=== PATIENT | male | born 1955 | race Caucasian/White ===

== ENCOUNTER → 2023-10-17 12:21 | Outpatient (REF) | payer MEDICARE, SELFPAY | LOC: CLAB 12:21 | PROVIDERS: ATTENDING PHYSICIAN Specialist | DX: R97.20 Elevated prostate specific antigen [PSA] (principal) | CPT/HCPCS: 88305; 88344 ==

== ENCOUNTER 2023-10-17 18:20 | Emergency (ER) | payer MEDICARE, OTHER, SELFPAY ==
[2023-10-17 18:33] VITALS: BP 156/98
--- NOTE | 2023-10-17 19:55 | ED.GENMED ---
History of Present Illness
General
Chief Complaint: Male Genito-Urinary Symptoms
Source: patient
Time Seen by Provider: 10/17/23 19:54
Travel History
Have you had any contact with someone who has COVID-19?: No
Do you have any symptoms of coronavirus? Fever > 100 degrees, chills, cough, shortness of breath, sore throat, loss of taste or smell, muscle aches, or headache?: No
History of Present Illness
History of Present Illness:
68-year-old male presenting the emergency department for evaluation after being unable to void since 11 AM after he had prostate biopsy earlier today with Dr. Tucker. Patient states he had similar episode about 4 years ago that required Larson
catheter. Other than some lower abdominal pressure and an urge to urinate patient is without any other concerns including fevers, chills, rigors, nausea, vomiting or any other concerns. He is taking prophylactic antibiotic prior to his surgery and
has a few more doses of this.
Past History
Past History
ED Past Medical History: Other (Prostate issues)
ED Past Surgical History: Urological
Social History
Tobacco: Non-smoker
Alcohol: None
Drug: None
Personal:
Living: with family
Employment: Employed
Family History
Family History: Other (Noncontributory)
Review of Systems
Review of Systems
All Other Systems: ROS reviewed and negative except as documented in HPI and ROS
Phy Exam
Physical Exam
Physical Exam:
GENERAL: Alert , in no apparent distress
EYE: conjunctiva clear
Head: Normocephalic atraumatic
NECK: Supple,
ENT: mmm.
LUNGS: no acute respiratory distress
ABDOMEN: 450 mL-bladder scan, suprapubic fullness
NEUROLOGICAL: Alert and oriented
SKIN: Warm and dry, skin intact.
MUSCULOSKELETAL: well perfused.
PSYCH: Normal and appropriate interaction.
Scores
Heart Failure Risk
Heart Failure Risk Score: Not Applicable
Heart Score for Chest Pain Patients
STEMI patient?: Not applicable
Withdrawal Assessment of Alcohol
Withdrawal Assessment Completed?: Not applicable
Course
Vital Signs
Initial and Last Documented VS:
Initial Vital Signs
Temp Pulse Resp BP Pulse Ox
98.0 F 85 20 156/98 98
10/17/23 18:33 10/17/23 18:33 10/17/23 18:33 10/17/23 18:33 10/17/23 18:33
Last Documented Vital Signs
Temp Pulse Resp BP Pulse Ox
98.0 F 85 20 156/98 98
10/17/23 18:33 10/17/23 18:33 10/17/23 18:33 10/17/23 18:33 10/17/23 18:33
MDM/Problems Addressed
MDM/Problems Addressed:
68-year-old male present emergency department for evaluation of inability urinate since last a biopsy earlier this morning. Greater than 450 mL on bladder scan. Will place Larson catheter for comfort. Anticipate discharge home. Will notify
urology given patient saw them in office today
*Pulse Oximetry
Patient hypoxic: no
*Critical Care Note
Total Time (30-74mins, 75-104mins- exclusive of procedures): Not Applicable
Comment
Comment:
Patient is afebrile without signs of infection. Larson catheter was placed and drained yellow blood-tinged urine. Patient with significant relief following catheter insertion.
Patient Management
Discussion with other providers: Tree W[employer]
Escalation/DeEscalation of care consider admission/obs:
7:55 PM: Notified urology team about plan and treatment in the ED. They are agreeable with this and patient is stable for discharge home and follow-up as an outpatient.
ED Attending Note
-
Portions of this chart may have been created with voice recognition software.� Occasional wrong word or��sound alike� substitutions may have occurred due to the inherent limitations of voice recognition software.
Discharge Plan
Departure
Patient Disposition: Home (Routine Discharge)
Date of Disposition: 10/17/23
Time of Disposition: 19:57
Patient with high blood pressure during this ER visit?: Yes
Discharge Problem:
Acute urinary retention
Instructions: Urinary Retention (DC)
Referrals:
Enzo Tucker MD [Active] -
Interventions
Interventions:
*Risk Screen - Suicide Last Done: 10/17/23 18:33
*General Assessment Last Done: 10/17/23 18:33
*Neglect/Abuse Screening Last Done: 10/17/23 18:33
ED-Male Genitourinary Assessment Last Done: 10/17/23 19:57
Discharge Date and Time
Print Language: SPANISH
== END 2023-10-17 20:17 | disposition home or self-care (01) ==
LOC: EMR 18:20
PROVIDERS: EMERGENCY PHYSICIAN Emergency Medicine; FAMILY PHYSICIAN Physician Assistant Medical
DX: R33.9 Retention of urine, unspecified (principal); R10.9 Unspecified abdominal pain; R03.0 Elevated blood-pressure reading, without diagnosis of hypertension
CPT/HCPCS: 99283; 51798; 51702

== ENCOUNTER 2023-10-21 19:04 | Emergency (ER) | payer MEDICARE, OTHER, SELFPAY ==
[2023-10-21 19:07] VITALS: BP 137/94
--- NOTE | 2023-10-21 20:15 | ED.GENMED ---
History of Present Illness
General
Chief Complaint: Catheter/Tube Problem
Source: patient
Exam Limitations: none
Time Seen by Provider: 10/21/23 20:08
Travel History
Have you had any contact with someone who has COVID-19?: No
Do you have any symptoms of coronavirus? Fever > 100 degrees, chills, cough, shortness of breath, sore throat, loss of taste or smell, muscle aches, or headache?: No
History of Present Illness
History of Present Illness:
Patient with a prostate biopsy 4 days ago. That same evening had a Larson catheter placed for urinary obstruction. Was doing fine till earlier this evening when he started noticing some urine from his urethra and some urine leaking along the
catheter. It appears there is been less drainage. No abdominal pain no fever no other complaints
Past History
Past History
ED Past Medical History: Other (Prostate issues)
ED Past Surgical History: Urological
Social History
Tobacco: Non-smoker
Alcohol: None
Drug: None
Personal:
Living: with family
Employment: Employed
Family History
Family History: Other (Noncontributory)
Review of Systems
Review of Systems
All Other Systems: Not applicable
Constitutional: Denies fever
Phy Exam
Physical Exam
Physical Exam:
General: Nontoxic appearing in no distress
Skin: Warm and dry, no rash
Neuro: Alert, nontoxic, grossly nonfocal
Psychiatric: Good eye contact and appropriate
Abdomen: Soft nontender. No suprapubic fullness
: Larson in place although relatively tight to the leg bag. Small amount of blood in the catheter bag. Minimal amount of urine in the bag. No obvious urine around the urethra no blood around the urethra.
Course
Orders/Labs/Results
Orders:
Orders
10/21/23 20:13
Larson Placement- Treatment ONCE
Reason for insertion: Chronic Larson on Admit
10/21/23 21:02
Lidocaine 2% [Lidocaine Uro-Jet 2%] 1 syringe .ROUTE .STK-MED ONE
Vital Signs
Initial and Last Documented VS:
Initial Vital Signs
Temp Pulse Resp BP Pulse Ox
98.1 F 81 16 137/94 99
10/21/23 19:07 10/21/23 19:07 10/21/23 19:07 10/21/23 19:07 10/21/23 19:07
Last Documented Vital Signs
Temp Pulse Resp BP Pulse Ox
98.1 F 81 16 137/94 99
10/21/23 19:07 10/21/23 19:07 10/21/23 19:07 10/21/23 19:07 10/21/23 19:07
MDM/Problems Addressed
Differential Diagnosis Includes:
Likely this is a blocked catheter. With urine around the urethra. We will replace the Larson.
*Pulse Oximetry
Patient hypoxic: no
*Critical Care Note
Total Time (30-74mins, 75-104mins- exclusive of procedures): Not Applicable
Data Reviewed
Review of Other/Old Records Reveals: Labs and Other (ER records)
Update Note
Update Note:
Good success good urine flow. Small amount of blood
ED Attending Note
-
Portions of this chart may have been created with voice recognition software.� Occasional wrong word or��sound alike� substitutions may have occurred due to the inherent limitations of voice recognition software.
Discharge Plan
Departure
Patient Disposition: Home (Routine Discharge)
Date of Disposition: 10/21/23
Time of Disposition: 22:18
Patient with high blood pressure during this ER visit?: Yes
Discharge Problem:
Blocked Larson catheter
Instructions: How to Care for Your Larson Catheter, Male, BLOOD PRESSURE
Referrals:
Hayley Evans PA-C [Family Provider] -
Activity Restrictions/Additional Instructions:
Call urology Tuesday for close follow-up
Interventions
Interventions:
*Risk Screen - Suicide Last Done: 10/21/23 19:07
*General Assessment Last Done: 10/21/23 19:07
*Neglect/Abuse Screening Last Done: 10/21/23 19:07
*ED COVID-19 Vaccine History Last Done: 10/21/23 20:02
NB-Dwhmsa-Oegsjwlihc Assessment Last Done: 10/21/23 20:02
ED-Male Genitourinary Assessment Last Done: 10/21/23 20:02
Discharge Date and Time
Print Language: SWEDISH
[2023-10-21 22:30] VITALS: BP 128/88
== END 2023-10-21 23:04 | disposition home or self-care (01) ==
LOC: EMR 19:04
PROVIDERS: EMERGENCY PHYSICIAN Emergency Medicine; FAMILY PHYSICIAN Physician Assistant Medical
DX: T83.091A Other mechanical complication of indwelling urethral catheter, initial encounter (principal); N13.9 Obstructive and reflux uropathy, unspecified; Y82.8 Other medical devices associated with adverse incidents; R03.0 Elevated blood-pressure reading, without diagnosis of hypertension; Z98.890 Other specified postprocedural states
CPT/HCPCS: 99284; 51702

== ENCOUNTER 2023-10-22 21:00 | Emergency (ER) | payer MEDICARE, OTHER, SELFPAY ==
[2023-10-22 21:08] VITALS: BP 152/101
--- NOTE | 2023-10-22 22:55 | ED.GENMED ---
History of Present Illness
General
Chief Complaint: Catheter/Tube Problem
Source: patient and records
Exam Limitations: none
Time Seen by Provider: 10/22/23 22:45
Nursing documentation reviewed up to this point in time: agreed with
Travel History
Have you had any contact with someone who has COVID-19?: No
Do you have any symptoms of coronavirus? Fever > 100 degrees, chills, cough, shortness of breath, sore throat, loss of taste or smell, muscle aches, or headache?: No
History of Present Illness
History of Present Illness:
68-year-old male presents emergency department due to urinary retention. He states his Larson catheter came out earlier today at 4 PM. He thought he could wait but was unable to urinate. He complains of suprapubic pain. He had a prostate biopsy
on 10/17/[address] Tucker.
Past History
Past History
ED Past Medical History: Other (Prostate issues)
ED Past Surgical History: Urological
Social History
Tobacco: Non-smoker
Alcohol: None
Drug: None
Personal:
Living: with family
Employment: Employed
Family History
Family History: Other (Noncontributory)
Review of Systems
Review of Systems
Allergies reviewed?: Yes
All Other Systems: Not applicable
Constitutional: Reports no symptoms
EENT: Reports no symptoms
Respiratory: Reports no symptoms
Cardiac: Reports no symptoms
ABD/GI: Reports no symptoms
: Reports difficulty voiding
Musculoskeletal: Reports no symptoms
Skin: Reports no symptoms
Neurological: Reports no symptoms
Endocrine: Reports no symptoms
Phy Exam
Physical Exam
Physical Exam:
Physical Exam
General: no apparent distress, not acutely ill
Neck: supple. no meningeal signs. normal posterior pharynx
Heart: equal radial pulses.
HEENT: EOMI
Lungs: no acute respiratory distress.
Abdomen:not tender. no CVAT, suprapubic tenderness
: no lesions, no blood at meatus
Neuro: alert and oriented. no focal neurological deficits
Skin: no rash
Psychiatric: well kept. interactive and cooperative
Extremities: no edema. good distal pulses
Course
Orders/Labs/Results
Orders:
Orders
10/22/23 22:54
Larson Placement- Treatment ONCE
Reason for insertion: Acute Retention
10/22/23 22:57
Lidocaine 2% [Lidocaine Uro-Jet 2%] 1 syringe .ROUTE .[employer] ONE
Vital Signs
Initial and Last Documented VS:
Initial Vital Signs
Temp Pulse Resp BP Pulse Ox
97.8 F 86 18 152/101 98
10/22/23 21:08 10/22/23 21:08 10/22/23 21:08 10/22/23 21:08 10/22/23 21:08
Last Documented Vital Signs
Temp Pulse Resp BP Pulse Ox
97.8 F 86 18 152/101 98
10/22/23 21:08 10/22/23 21:08 10/22/23 21:08 10/22/23 21:08 10/22/23 21:08
MDM/Problems Addressed
Differential Diagnosis Includes:
UTI, urinary retention
MDM/Problems Addressed:
68-year-old male with acute urinary retention, relieved with Larson catheter placement. Stable for follow-up with urology, Dr. Tucker.
Chronic conditions affecting care: Other (Prostate enlargement)
*Pulse Oximetry
Patient hypoxic: no
*EKG
Interpreted by ED Provider?: NA
*Tool And Die Repairer Interpretation
Rate: Tool And Die Repairer- N/A
*Critical Care Note
Total Time (30-74mins, 75-104mins- exclusive of procedures): Not Applicable
Patient Management
Social determinants of health affecting care: Living situation
Escalation/DeEscalation of care consider admission/obs:
Admit not indicated
ED Attending Note
-
Portions of this chart may have been created with voice recognition software.� Occasional wrong word or��sound alike� substitutions may have occurred due to the inherent limitations of voice recognition software.
Discharge Plan
Departure
Patient Disposition: Home (Routine Discharge)
Date of Disposition: 10/23/23
Time of Disposition: 00:03
Patient with high blood pressure during this ER visit?: Yes
Condition: Good
Discharge Problem:
Acute urinary retention, Dislodged Larson catheter
Instructions: How to Care for Your Larson Catheter, Male
Referrals:
Hayley Evans PA-C [Family Provider] -
Enzo Tucker MD [Active] - Call in 1-3 days for appt
Interventions
Interventions:
*Risk Screen - Suicide Last Done: 10/22/23 21:08
*General Assessment Last Done: 10/22/23 21:08
*Neglect/Abuse Screening Last Done: 10/22/23 21:08
ED-Male Genitourinary Assessment Last Done: 10/22/23 23:51
Discharge Date and Time
Print Language: TOGOLESE
[2023-10-23 00:13] VITALS: BP 131/78
== END 2023-10-23 00:14 | disposition home or self-care (01) ==
LOC: EMR 21:00
PROVIDERS: EMERGENCY PHYSICIAN Emergency Medicine; FAMILY PHYSICIAN Physician Assistant Medical
DX: R33.9 Retention of urine, unspecified (principal); T83.021A Displacement of indwelling urethral catheter, initial encounter; Y84.9 Medical procedure, unspecified as the cause of abnormal reaction of the patient, or of later complication, without mention of misadventure at the time of the procedure; R03.0 Elevated blood-pressure reading, without diagnosis of hypertension
CPT/HCPCS: 99283; 51702

== ENCOUNTER 2024-10-22 06:16 | Day surgery (SDC) | payer MEDICARE, OTHER, SELFPAY | END 2024-10-22 10:06 | disposition home or self-care (01) | LOC: GI 06:16 | PROVIDERS: ATTENDING PHYSICIAN Specialist | DX: Z12.11 Encounter for screening for malignant neoplasm of colon (principal); Z86.0101 Personal history of adenomatous and serrated colon polyps; Z80.0 Family history of malignant neoplasm of digestive organs; K57.30 Diverticulosis of large intestine without perforation or abscess without bleeding; K64.8 Other hemorrhoids | CPT/HCPCS: G0105 ==

== ENCOUNTER → 2024-11-20 10:54 | Outpatient (REF) | payer MEDICARE, OTHER, SELFPAY ==
[2024-11-20 11:39] LABS: % Basophils 0.9 % (0-2); % Eosinophils 0.9 % (0-6); % Immature Granulocytes 0.4 % (0-0.5); % Lymphocytes 24.9 % (20.5-51.1); % Monocytes 6.5 % (1.7-9.3); % Neutrophils 66.4 % (42.2-75.2); Absolute Basophils 0.1 10^3/uL (0-0.2); Absolute Eosinophils 0.1 10^3/uL (0-0.7); Absolute Lymphocytes 1.4 10^3/uL (1.2-3.4); Absolute Monocytes 0.4 10^3/uL (0.1-0.6); Absolute Neutrophils 3.7 10^3/uL (1.4-6.5); Hematocrit 42.4 % (39.0-52.0); Hemoglobin 14.7 g/dL (13.0-18.0); Mean Corp Hgb Conc. 34.7 g/dL (33.0-37.0); Mean Corpuscular Hgb 31.8 pg (27.0-31.0); Mean Corpuscular Volume 91.8 fL (80.0-94.0); Mean Platelet Volume 10.3 fL (7.4-10.4); Nucleated Red Blood Cells % 0 % (-); Platelet Count 255 10^3/uL (130-400); Red Blood Cell Count 4.62 10^6/uL (4.70-6.10); Red Cell Dist. Width 12.1 % (11.5-14.5); White Blood Cell Count 5.5 10^3/uL (4.8-10.8)
[2024-11-20 12:02] LABS: Blood Urea Nitrogen 17 mg/dl (9-20); Calcium 9.5 mg/dl (8.4-10.2); Carbon Dioxide 26 mmol/L (22-30); Chloride 105 mmol/L (98-107); Glucose 106 mg/dl (70-99); Potassium 4.8 mmol/L (3.5-5.1); Sodium 138 mmol/L (135-145); eGFR > 60.00
== END ==
LOC: SDSPAT 10:54
PROVIDERS: ATTENDING PHYSICIAN Specialist; FAMILY PHYSICIAN Physician Assistant Medical
DX: N21.0 Calculus in bladder (principal)
CPT/HCPCS: 36415; 80048; 85025; 93005

== ENCOUNTER 2024-11-27 06:27 | Day surgery (SDC) | payer MEDICARE, OTHER, SELFPAY ==
[2024-11-27] VITALS (8 sets, daily range): BP systolic 127–155; BP diastolic 78–92; BMI 21.9
[2024-11-27] MEDS: Pyridium 200 MG PO (15:11)
== END 2024-11-27 16:55 | disposition home or self-care (01) ==
LOC: SDS 06:27
PROVIDERS: ATTENDING PHYSICIAN Specialist; FAMILY PHYSICIAN Physician Assistant Medical
DX: N21.0 Calculus in bladder (principal); R33.9 Retention of urine, unspecified
CPT/HCPCS: 52318; 36415; 82365; 87086; J1580

== ENCOUNTER → 2025-03-20 08:32 | Outpatient (REF) | payer MEDICARE, OTHER, SELFPAY ==
[2025-03-20 11:03] LABS: Hematocrit 43.6 % (39.0-52.0); Hemoglobin 14.6 g/dL (13.0-18.0); Mean Corp Hgb Conc. 33.5 g/dL (33.0-37.0); Mean Corpuscular Volume 91.2 fL (80.0-94.0); Platelet Count 200 10^3/uL (130-400); Red Cell Dist. Width 11.7 % (11.5-14.5)
[2025-03-20 11:17] LABS: Blood Urea Nitrogen 20 mg/dl (9-20); Calcium 8.9 mg/dl (8.4-10.2); Carbon Dioxide 29 mmol/L (22-30); Chloride 105 mmol/L (98-107); Glucose 92 mg/dl (70-99); Potassium 4.3 mmol/L (3.5-5.1); Sodium 139 mmol/L (135-145); eGFR > 60.00
== END ==
LOC: SDSPAT 08:32
PROVIDERS: ATTENDING PHYSICIAN Specialist; FAMILY PHYSICIAN Physician Assistant Medical
DX: Z01.818 Encounter for other preprocedural examination (principal)
CPT/HCPCS: 36415; 80048; 85027

== ENCOUNTER 2025-03-28 06:28 | Day surgery (SDC) | payer MEDICARE, OTHER, SELFPAY ==
[2025-03-20 14:02] VITALS: BMI 18.5
[2025-03-28] VITALS (11 sets, daily range): BP systolic 124–169; BP diastolic 72–91; BMI 18.5
[2025-03-28] MEDS: NORMOSOL-R/PLASMALYTE-A 1000 IV (10:12)
== END 2025-03-28 15:15 | disposition home or self-care (01) ==
LOC: SDS 06:28
PROVIDERS: ATTENDING PHYSICIAN Specialist; FAMILY PHYSICIAN Physician Assistant Medical
DX: N21.0 Calculus in bladder (principal)
CPT/HCPCS: 52318; 82365; 87086